=== PATIENT | female | born 1990 | race African-American/Black ===

== ENCOUNTER 2017-09-11 11:24 | Emergency (ER) | payer MEDICAID ==
[~2017-09-11] VITALS: Ht 160 cm; Wt 59.0 kg
[~2017-09-11 11:24] MED LIST: ZIPR60CA5 PO
[2017-09-11 11:28] VITALS: BP_SYST 126
[2017-09-11 12:35] LABS: BILIRUBIN,URINE NEGATIVE (NEGATIVE); BLOOD, URINE NEGATIVE (NEGATIVE); CLARITY/URINE CLEAR (CLEAR); COLOR,URINE YELLOW (YELLOW); GLUCOSE,URINE NEGATIVE (NEGATIVE); KETONES,URINE NEGATIVE (NEGATIVE); LEUKOCYTE ESTERASE ,URINE NEGATIVE (NEGATIVE); NITRITE, URINE NEGATIVE (NEGATIVE); PH,URINE 8.5 (5.0-8.0); PROTEIN URINE TRACE (NEGATIVE)
[2017-09-11 12:50] LABS: RBC,URINE 0-3 /HPF (0-3); WBC,URINE 0-3 /HPF (0-3)
[2017-09-11 12:51] LABS: BACTERIA,URINE MODERATE /HPF (None Seen); MUCUS,URINE None Seen /LPF (None Seen)
[2017-09-11 14:05] VITALS: BP_SYST 135
== END 2017-09-11 14:05 | disposition home or self-care (01) ==
LOC: SED 11:24
DX: T76.21XA Adult sexual abuse, suspected, initial encounter (principal); R03.0 Elevated blood-pressure reading, without diagnosis of hypertension; F41.9 Anxiety disorder, unspecified; F84.0 Autistic disorder
CPT/HCPCS: 81000-TC; 81025; 87086; 99284

== ENCOUNTER 2020-11-13 16:54 | Emergency (ER) | payer MEDICAID ==
[~2020-11-13] VITALS: Ht 160 cm; Wt 68.0 kg
[~2020-11-13 16:54] MED LIST changes: +ZIPR60CA2 PO; -ZIPR60CA5 PO
[2020-11-13 17:04] VITALS: BP_SYST 132
[2020-11-13] MEDS ORDERED: IBUPROFEN 600 MG TABLET PO ONE (17:15)
[2020-11-13] MEDS ORDERED: IBUP-1969 PO (17:38)
[2020-11-13 17:45] VITALS: BP_SYST 132
== END 2020-11-13 17:45 | disposition home or self-care (01) ==
LOC: SED 16:54
DX: M25.572 Pain in left ankle and joints of left foot (principal); Z79.899 Other long term (current) drug therapy; X50.1XXA Overexertion from prolonged static or awkward postures, initial encounter; Y93.89 Activity, other specified; Y92.89 Other specified places as the place of occurrence of the external cause; Y99.8 Other external cause status
CPT/HCPCS: 99283

== ENCOUNTER 2022-10-06 14:58 | Emergency (ER) | payer MEDICAID, OTHER ==
[~2022-10-06] VITALS: Ht 160 cm; Wt 74.8 kg
[~2022-10-06 14:58] MED LIST changes: +IBUP-1969 PO
[2022-10-06 15:04] VITALS: BP_SYST 138
[2022-10-06] MEDS ORDERED: AUG875 PO (15:15)
[2022-10-06 15:23] VITALS: BP_SYST 138
== END 2022-10-06 15:23 | disposition home or self-care (01) ==
LOC: SED 14:58
DX: J02.9 Acute pharyngitis, unspecified (principal); R05.9 Cough, unspecified; Z79.899 Other long term (current) drug therapy
CPT/HCPCS: 99283